=== PATIENT | male | born 1960 | race African-American/Black ===

== ENCOUNTER 2017-10-15 22:01 | Emergency (ER) | payer OTHER ==
[~2017-10-15 22:01] MED LIST: CLEOCIN T60 ML TP; FLEXERIL10 MG PO; MOTRIN800 MG PO; NAPROSYN500 MG PO; NORVASC10 MG PO; PATADAY2.5 ML LEFT EYE; PERCOCET 5/31 TABLET PO; ROBAXIN750 MG PO; VITAMIN B-12500 MC5 SL
[2017-10-15 22:24] LABS: BASOPHIL (%) 0.8 % (0-1); EOSINOPHIL (%) 1.4 % (0-5); EOSINOPHIL COUNT 0.1 K/uL (0-0.3); HEMATOCRIT 45.1 % (38.0-50.0); HEMOGLOBIN 16.4 G/DL (12.5-16.6); IMMATURE GRANULOCYTE (%) 0.2 % (0.0-0.7); LYMPHOCYTE (%) 49.8 % (15-42); LYMPHOCYTE COUNT 2.5 K/uL (1.0-2.8); MCH 31.4 PG (29.0-34.0); MCHC 36.4 G/DL (30.0-36.0); MCV 86.4 FL (86-99); MONOCYTE (%) 13.9 % (3-12); MONOCYTE COUNT 0.7 K/uL (0-0.8); NEUTROPHIL (%) 33.9 % (45-76); NEUTROPHIL COUNT 1.7 K/uL (1.8-6.4); PLATELET COUNT 213 K/uL (156-360); RBC DIS.WIDTH-CV 12.1 % (11.8-14.6); RBC DIS.WIDTH-SD 38.5 % (39-53); RED BLOOD COUNT 5.22 M/uL (4.00-5.50)
[2017-10-15 22:35] LABS: AMYLASE 68 IU/L (1-118); CHLORIDE 102 mEq/L (99-109); POTASSIUM 3.6 mEq/L (3.7-5.4); SODIUM 136 mEq/L (136-147)
[2017-10-15 22:37] LABS: GLUCOSE 101 mg/dL (70-99)
[2017-10-15 22:40] LABS: CREATININE 1.2 mg/dL (0.6-1.3); GFR ESTIMATE (CALCULATED) > 59 mL/min/ (58.99-99999); SERUM ETHYL ALCOHOL < 10 mg/dL
[2017-10-15 22:41] LABS: UREA NITROGEN (BUN) 14 mg/dL (9-23)
[2017-10-15 22:43] LABS: LIPASE 40 U/L (1.0-51.0)
[2017-10-15 22:56] LABS: APPEARANCE CLEAR ((CLEAR)); BILIRUBIN NEGATIVE; BLOOD NEGATIVE; COLOR STRAW ((YELLOW)); GLUCOSE (STRIP) NEGATIVE; KETONES NEGATIVE; LEUKOCYTES NEGATIVE; NITRITE NEGATIVE; PROTEIN (STRIP) NEGATIVE; SPECIFIC GRAVITY 1.008 (1.000-1.030); UCUL ADDED? NO; UROBILINOGEN 0.2 MG/DL (0.2-1.0)
[2017-10-15 23:20] LABS: AMPHETAMINE NEGATIVE (500 ng/mL); BARBITURATES NEGATIVE (200 ng/mL); BENZODIAZEPINES NEGATIVE (150 ng/mL); BUPRENORPHINE NEGATIVE (10 ng/mL); COCAINE NEGATIVE (150 ng/mL); METHADONE NEGATIVE (200 ng/mL); METHAMPHETAMINE NEGATIVE (500 ng/mL); OPIATES (MORPHINE) NEGATIVE (100 ng/mL); OXYCODONE NEGATIVE (100 ng/mL); PHENCYCLIDINE NEGATIVE (25 ng/mL); PROPOXYPHENE NEGATIVE (300 ng/mL); THC CANNABINOIDS NEGATIVE (50 ng/mL); TRICYCLIC ANTIDEPRESSANTS NEGATIVE (300 ng/mL)
== END 2017-10-15 23:37 | disposition home or self-care (01) ==
LOC: TRA 22:01
PROVIDERS: Emergency Medicine
DX: I10 Essential (primary) hypertension (principal); Z04.1 Encounter for examination and observation following transport accident; V54.5XXA Driver of pick-up truck or van injured in collision with heavy transport vehicle or bus in traffic accident, initial encounter; Y92.410 Unspecified street and highway as the place of occurrence of the external cause
CPT/HCPCS: 70450; 71260; 72129; 72132; 73070; 74177; 80048; 81003; 82150; 83690; 85025; 86850; 86900; 86901; 99281; 99285; G0480; J3010